=== PATIENT | male | born 2000 | race Caucasian/White ===

== ENCOUNTER 2023-11-14 10:34 | Emergency (ER) | payer SELFPAY ==
[~2023-11-14] VITALS: Ht 154 cm; Wt 50.0 kg
[~2023-11-14 10:34] MED LIST: ADVIL200 MG PO; AMOXICILLIN 50500 MG PO; ATARAX 25MG25 MG/TAB PO; BIAXIN 500MG T500 MG PO; CIPRO 500MG TA500 MG PO; FLAGYL500 MG PO; NORCO 325 MG-51 TAB PO; PEPTO-BISMOL U525 MG PO; PHENERGAN 25 TA25 MG PO; PREDNISONE20 MG PO; PRIL40 PO; PROTONIX20 MG PO; ROXICODONE 55 MG/TAB PO; ZOFRAN ODT4 MG PO
[2023-11-14 10:41] VITALS: TEMP 97.4
[2023-11-14] MEDS ORDERED: Ondansetron 4 MG/2 ML VIAL IV ONE (11:15)
[2023-11-14] MEDS ORDERED: HYDROmorphone 0.5 MG/0.5 ML SYRINGE IV ONE (11:15)
[2023-11-14] MEDS ORDERED: NS 1,000 ML IV ONE (11:15)
[2023-11-14 11:20] LABS: BASO % 0.2 % (0.0-2.0); EOS # 0.2 K/mm3 (0.0-0.7); GRAN # 6.8 K/mm3 (1.4-6.5); HEMATOCRIT 47.3 % (42.0-52.0); HEMOGLOBIN 16.5 g/dl (13.5-18.0); LYMPH # 2.6 K/mm3 (1.2-3.4); LYMPH % 25.5 % (20.0-51.0); MEAN CELL VOLUME 87 fl (80.0-100.0); MEAN CORPUSCULAR HEMOGLOBIN 30 pg (27-31); MEAN CORPUSCULAR HGB CONC 35 g/dl (33.0-37.0); MEAN PLATELET VOLUME 9.7 fl (7.4-10.4); MONO # 0.6 K/mm3 (0.1-0.6); PLATELET COUNT 301 K/mm3 (130-400); RED BLOOD COUNT 5.44 M/mm3 (4.20-5.60); REDCELL DISTRIBUTION WIDTH-CV 12.2 % (11.5-14.5)
[2023-11-14 11:40] LABS: ALBUMIN 4.4 g/dL (3.5-5.0); BILIRUBIN,TOTAL 0.4 mg/dL (0.2-1.2); C-REACTIVE PROTEIN 0.47 mg/dL (0.00-0.50); CALCIUM 9.8 mg/dL (8.4-10.2); CREATININE, serum 0.82 mg/dL (0.72-1.25)
[2023-11-14 12:52] LABS: PH 7.5 (5.0-8.5); URINE APPEARANCE CLEAR (CLEAR/HAZY); URINE BLOOD NEGATIVE (NEGATIVE); URINE COLOR YELLOW (YELLOW); URINE GLUCOSE NEGATIVE (NEGATIVE); URINE KETONE NEGATIVE (NEGATIVE); URINE NITRATE NEGATIVE (NEGATIVE); URINE PROTEIN(semi-quant) NEGATIVE (NEGATIVE); URINE UROBILINOGEN 0.2 E.U/dL (0.2-1.0)
[2023-11-14] MEDS ORDERED: oxyCODONE/Acetaminophen 5-325 MG TAB PO ONE (13:00)
[2023-11-14 13:04] LABS: COLLECTION METHOD CLEAN CATCH
[2023-11-14] MEDS ORDERED: ZOFRAN ODT4 MG PO (14:36)
[2023-11-14] MEDS ORDERED: NORCO 325 MG-51 TAB PO (14:36)
[2023-11-14 15:26] VITALS: BP 135/81; PULSE 88
== END 2023-11-14 15:27 | disposition home or self-care (01) ==
LOC: COL.ER 10:34 → EDBD 10:34 → COL.ER 15:27
PROVIDERS: Nurse Practitioner
DX: R10.12 Left upper quadrant pain (principal); R10.32 Left lower quadrant pain; R11.2 Nausea with vomiting, unspecified; Z87.19 Personal history of other diseases of the digestive system
CPT/HCPCS: J1170; J2405; J7030